=== PATIENT | female | born 1995 | race Caucasian/White ===

== ENCOUNTER → 2019-05-24 13:40 | Observation (INO) ==
[2019-05-24 11:51] LABS: Basophils % 0.2 %; Eosinophils % 0.2 %; Hematocrit 33.5 % (35.3-44.9); Hemoglobin 11.4 g/dL (11.5-15.4); Immature Granulocytes % 0.3 % (0-4); Lymphocytes # 1.8 K/mcL (0.6-4.6); Lymphocytes % 14.6 %; Mean Corpuscular Hemoglobin 29.8 pg (28.0-33.3); Mean Corpuscular Volume 87.7 fL (83.0-100.0); Mean Platelet Volume 10.9 fL (9.4-12.4); Monocytes % 8.2 %; Neutrophils # 9.3 K/mcL (1.6-8.9); Platelet Count 246 K/mcL (140-400); Red Blood Count 3.82 M/mcL (3.82-4.97); Red Cell Distribution Width 12.9 % (11.5-14.5); Segmented Neutrophils % 76.5 %; White Blood Count 12.2 K/mcL (4.3-11.1)
[2019-05-24 11:57] LABS: Amphetamine Screen,Urine Negative ng/mL (Cutoff=1000); Barbiturate Screen,Urine Negative ng/mL (Cutoff=200); Benzodiazepines Screen,Urine Negative ng/mL (Cutoff=200); Cannabinoid Screen,Urine Negative ng/mL (Cutoff = 50); Cocaine Screen,Urine Negative ng/mL (Cutoff= 300); Creatinine,Urine 64 mg/dL; Opiate Screen,Urine Negative ng/mL (Cutoff=300); Phencyclidine Screen,Urine Negative ng/mL (Cutoff=25); Protein/Creatinine Ratio,Urine 0.19 mg/mg (0.00-0.20)
[2019-05-24 12:07] LABS: Alanine Aminotransferase 15 Units/L (7-52); Aspartate Amino Transferase 17 Units/L (13-39); BUN/Creatinine Ratio 9 (6-26); Blood Urea Nitrogen 6 mg/dL (6-20); Lactate Dehydrogenase 122 Units/L (140-271); Uric Acid 6.3 mg/dL (2.3-7.6); eGFR For African Americans > 60 (> 60); eGFR For Non-African Americans > 60 (> 60)
--- NOTE | 2019-05-24 13:34 | Discharge Summary ---
Date of Encounter: 05/24/19 Time of Encounter: 13:33 - Discharge Diagnosis (1) 38 weeks gestation of Priority: Primary Status: Acute Comments: Admit to observation for preeclapsia evaluation (2) NST (non-stress test) reactive Priority: Secondary Status: Acute Comments: FHR 140 bpm, moderate variability, +15x15 accels, no decels. (3) Breech presentation of fetus Priority: Secondary Status: Acute Comments: Patient planning to schedule a primary section with Dr. Pacheco due to breech presentation. Declined an external version. Qualifiers: Fetus number: single or unspecified fetus Qualified Code(s): O32.1XX0 - Maternal care for breech presentation, not applicable or unspecified (4) Elevated blood pressure affecting in third trimester, antepartum Priority: Secondary Status: Acute Comments: BP's mildly elevated on arrival but returned to normotensive prior to discharge. All labs within normal limits. Data Procedures and tests throughout hospitalization: Laboratory Tests 05/24/19 05/24/19 05/24/19 11:30 11:30 11:30 WBC 12.2 H RBC 3.82 Hgb 11.4 L Hct 33.5 L MCV 87.7 MCH 29.8 MCHC 34.0 RDW 12.9 Plt Count 246 MPV 10.9 Immature Gran % 0.3 Seg Neutrophils % 76.5 Lymphocytes % 14.6 Monocytes % 8.2 Eosinophils % 0.2 Basophils % 0.2 Neutrophils # 9.3 H Lymphocytes # 1.8 Monocytes # 1.0 Eosinophils # 0.0 Basophils # 0.0 BUN 6 Creatinine 0.64 Est GFR ( Amer) > 60 Est GFR (Non-Af Amer) > 60 BUN/Creatinine Ratio 9 Uric Acid 6.3 AST 17 ALT 15 Lactate Dehydrogenase 122 L Urine Creatinine 64 Protein/Creatinin Ratio 0.19 Urine Total Protein 12 Urine Opiates Screen Negative Ur Buprenorphine Scrn Negative Ur Barbiturates Screen Negative Ur Phencyclidine Scrn Negative Ur Amphetamines Screen Negative U Benzodiazepines Scrn Negative Urine Cocaine Screen Negative U Marijuana (THC) Screen Negative Ur Drug Screen Interp See Below Labs on day of discharge: Labs from last 24 hours 05/24/19 05/24/19 05/24/19 11:30 11:30 11:30 WBC 12.2 H RBC 3.82 Hgb 11.4 L Hct 33.5 L MCV 87.7 MCH 29.8 MCHC 34.0 RDW 12.9 Plt Count 246 MPV 10.9 Immature Gran % 0.3 Seg Neutrophils % 76.5 Lymphocytes % 14.6 Monocytes % 8.2 Eosinophils % 0.2 Basophils % 0.2 Neutrophils # 9.3 H Lymphocytes # 1.8 Monocytes # 1.0 Eosinophils # 0.0 Basophils # 0.0 BUN 6 Creatinine 0.64 Est GFR ( Amer) > 60 Est GFR (Non-Af Amer) > 60 BUN/Creatinine Ratio 9 Uric Acid 6.3 AST 17 ALT 15 Lactate Dehydrogenase 122 L Urine Creatinine 64 Protein/Creatinin Ratio 0.19 Urine Total Protein 12 Urine Opiates Screen Negative Ur Buprenorphine Scrn Negative Ur Barbiturates Screen Negative Ur Phencyclidine Scrn Negative Ur Amphetamines Screen Negative U Benzodiazepines Scrn Negative Urine Cocaine Screen Negative U Marijuana (THC) Screen Negative Ur Drug Screen Interp See Below Date of admission: 05/24/19 11:07 Discharging clinician: Natalie Monk Anticipated date of discharge: 05/24/19 - Patient Status Disposition: Home, Self-Care Condition: Good Functional capacity at discharge: independent ambulation Overall status at discharge: patient is progressing back to baseline - Discharge Instructions Follow Up With: Vanessa Pacheco MD [Partnered Physician] - - Diet and Activity Activity: resume usual activities as tolerated Diet: regular diet Hospital Course [employer] Hospital course: Patient was sent from office for preeclampsia evaluation due to elevated blood pressure in the office. On arrival, BP was mildly elevated but patient is asymptomatic. She reports occasional "floaters" in her vision but denies headache and epigastric pain. At time of discharge, BP were normal range. Patient was known to be massimo breech presentation and requests a primary . All bloodwork has returned within normal limits with a PC ratio of 0.19. Dr. Pacheco notified of lab results and BP's so can be scheduled. Irregular contractions were noted, SVE 2/thick/high which is unchanged from exam in office today. Patient will be discharged home with precautions and is to expect a call from the office to schedule her . Time Attestation: Total time spent providing and/or coordinating discharge services: Time Spent: Less than 30 minutes Exam - Constitutional General appearance IM: A&O X 3, pleasant, no acute distress, answers questions appropriately - Respiratory Respiratory exam: Present: CTAB. Absent: respiratory distress - Cardiovascular Cardiovascular exam IM: Present: RRR, +S1, +S2. Absent: irregular rhythm - GI/Abdominal GI/Abdominal exam IM: normal bowel sounds, soft Incision: normal, dry, intact - Rectal Rectal exam: deferred - Extremities Exam Extremities exam IM: Present: full ROM, normal capillary refill, pedal edema, warm. Absent: calf tenderness - Neurological Exam Neurological exam: alert, normal gait, oriented X3, reflexes normal - VTE Reasons for not Prescribing Prophylaxis: Treatment not Indicated - Low risk for VTE
== END | disposition home or self-care (01) ==
LOC: 1NENULAB
PROVIDERS: ADMIT Registered Nurse; ATTEND Registered Nurse

== ENCOUNTER 2019-05-26 13:36 | Inpatient (IN) ==
[2019-05-26] MEDS ORDERED: CeFAZolin Premix DUPLEX 2,000 MG/50 ML BAG IVPB ONE (13:53)
[2019-05-26] MEDS ORDERED: Metoclopramide 10 MG/2 ML VIAL IVP ONE ×2 (13:53→16:15)
[2019-05-26] MEDS ORDERED: Oxytocin 20 units/ LR 1000 mL 20 UNIT/1,000 ML BAG IVC ONE (13:53)
[2019-05-26] MEDS ORDERED: Ringers Solution, Lactated 1,000 ML IVC ONE (13:53)
[2019-05-26] MEDS ORDERED: Famotidine 20 MG/2 ML VIAL IVP ONE (13:53)
[2019-05-26] MEDS ORDERED: Ringers Solution, Lactated 1,000 ML IVC SCH (14:00)
[2019-05-26] MEDS ORDERED: Oxytocin 20 units/ LR 1000 mL 20 UNIT/1,000 ML BAG IVC SCH ×2 (14:00→18:40)
[2019-05-26 14:15] LABS: Basophils % 0.2 %; Eosinophils % 0.1 %; Hematocrit 33.4 % (35.3-44.9); Hemoglobin 11.6 g/dL (11.5-15.4); Immature Granulocytes % 0.4 % (0-4); Lymphocytes # 2.1 K/mcL (0.6-4.6); Lymphocytes % 15.9 %; Mean Corpuscular HGB Conc 34.7 g/dL (31.6-35.5); Mean Corpuscular Hemoglobin 31.2 pg (28.0-33.3); Mean Corpuscular Volume 89.8 fL (83.0-100.0); Mean Platelet Volume 11.6 fL (9.4-12.4); Neutrophils # 9.8 K/mcL (1.6-8.9); Platelet Count 247 K/mcL (140-400); Red Blood Count 3.72 M/mcL (3.82-4.97); Red Cell Distribution Width 12.9 % (11.5-14.5); Segmented Neutrophils % 75.4 %
[2019-05-26 14:24] LABS: Amphetamine Screen,Urine Negative ng/mL (Cutoff=1000); Barbiturate Screen,Urine Negative ng/mL (Cutoff=200); Benzodiazepines Screen,Urine Negative ng/mL (Cutoff=200); Cannabinoid Screen,Urine Negative ng/mL (Cutoff = 50); Cocaine Screen,Urine Negative ng/mL (Cutoff= 300); Opiate Screen,Urine Negative ng/mL (Cutoff=300); Phencyclidine Screen,Urine Negative ng/mL (Cutoff=25)
--- NOTE | 2019-05-26 15:14 | OB/GYN History & Physical ---
Date of Encounter: 05/26/19 Time of Encounter: 15:12 Assessment and Plan (1) Breech presentation of fetus Current visit: No Status: Acute Qualifiers: Fetus number: single or unspecified fetus Qualified Code(s): O32.1XX0 - Maternal care for breech presentation, not applicable or unspecified (2) 39 weeks gestation of Current visit: Yes Status: Acute History of Present Illness Chief complaint: Breech presentation HPI: Ms. Dumont is a 24 year old female 1 at 39 weeks gestation who presents for scheduled section for massimo breech presentation. Ultrasound was just performed which confirmed infant to be in massimo breech presentation. Patient does not wish person. She wishes a primary section. She is doing well. With no complaints. She is not laboring currently. She has no drug allergies. She is currently on vitamins. She has no chronic medical conditions. Surgical history is negative. She has no history of STDs or pelvic infections. She has no history of abnormal Pap smears. Socially she denies tobacco, alcohol, illicit drug use. Family history is noncontributory Past Med Surg Social Fam HX - Past Medical History Medical history: no medical history Psychiatric history: no psych history - Past Surgical History Surgical History: other Additional surgical history: reconstructive bladder surgery at age 3 - Social History Smoking Status: Never smoker Alcohol use: none Drug use: none - Family History Maternal Grandmother Living Status: Still Living Hx Family Cancer: Yes (piutary cancer) Hx Family Neurologic Disorders: No Hx Family HEENT Disorders: No Hx Family Autoimmune Disorders: No Obstetrical History - Pregnancies : 1 Medications and Allergies Vitamin Tablet 1 / PO DAILY 05/26/19 [History] Allergy/AdvReac Type Severity Reaction Status Date / Time No Known Allergies Allergy Verified 05/26/19 13:51 Review of System OB All systems PM: reviewed and no additional remarkable complaints except as stated Exam - Constitutional Constitutional: well developed, well nourished, no acute distress, average body habitus - HEENT HEENT: EOMI, PERRL - Neck Neck exam: full ROM, normal inspection - Lungs Respiratory exam: CTAB - Cardiovascular Cardiovascular exam: RRR - Abdomen Abdomen: Present: bowel sounds normal, gravid, non tender - Extremities Extremities exam: full ROM - Vagina Vagina: Present: normal moisture Results Result Diagrams: 05/26/19 13:40 Abnormal lab results WBC 13.0 K/mcL (4.3-11.1) H 05/26/19 13:40 RBC 3.72 M/mcL (3.82-4.97) L 05/26/19 13:40 Hct 33.4 % (35.3-44.9) L 05/26/19 13:40 Neutrophils # 9.8 K/mcL (1.6-8.9) H 05/26/19 13:40 All other labs normal.
--- NOTE | 2019-05-26 15:57 | Anesthesia Procedures ---
Date of Encounter: 05/26/19 Time of Encounter: 15:55 Procedures: Anesthesia - Epidural/Spinal Patient ID/Chart reviewed: Yes Patient examined: Yes OB Eval: Gestational age: 39 weeks 1 day OB Eval: : 1 OB Eval: Hx Para: 0 OB Eval: Contractions: Non-stressed pattern Consent Obtained: Yes Supplemental Oxygen: None/Room Air Site Prep: Aseptic Technique, Sterile prep and drape, 0.5% Chlorhexidine/Alcohol Patient position: upright Local Anesthetic: Lidocaine 1% Amount of Local Anesthetic used: 3 Interspace Used: L3-L4 Blood: No CSF: Yes Paresthesia: No Spinal Needle Gauge: 25 (3.5" pencan needle) Procedure: successful on 1st attempt; patient tolerated procedure well; VSS Vitals + FHT's: see anesthesia record
[2019-05-26] MEDS ORDERED: *HR* Oxytocin 10 UNIT/ML VIAL IM ONE (16:12)
[2019-05-26] MEDS ORDERED: *HR* Morphine Sulfate/PF 10 MG/10 ML AMPUL ONE (16:12)
[2019-05-26] MEDS ORDERED: *HR* Phenylephrine 10 MG/ML VIAL ONE (16:12)
[2019-05-26] MEDS ORDERED: *HR* FentaNYL (PF) 100 MCG/2 ML VIAL ONE (16:12)
[2019-05-26] MEDS ORDERED: *HR* OxyCODONE Immed Rel 5 MG TABLET PO PRN (16:15)
[2019-05-26] MEDS ORDERED: Ondansetron 4 MG/2 ML VIAL IVP ONE (16:15)
[2019-05-26] MEDS ORDERED: *HR* Labetalol 20 MG/4 ML SYRINGE IVP PRN (16:15)
[2019-05-26] MEDS ORDERED: *HR* HYDROmorphone (PF) 1 MG/ML SYRINGE IVP PRN (16:15)
--- NOTE | 2019-05-26 16:17 | OB/GYN Procedure Note ---
Section - Date of procedure: 05/26/19 Preop diagnosis: breech Post-op diagnosis: same Procedure: primary low transverse Surgeon: Frederick Baker Blood Loss: 500 Was there an mechanic's assistant present: Yes Eating Disorder Psychologist: Tameka Banegas Compressor Mechanic Bus: Tank Clemens Anesthesia Type: Spinal section complications: none Disposition: PACU - (s) A Delivery Date: 05/26/19 Infant Delivery Time: 15:48 Presentation: breech, massimo breech Route of delivery: other Gender: Male Viability: Viable Pounds: 8 Ounces: 13 Gram Weight: 4.01 kg at 1 minute: 9 at 5 minutes: 10 Placenta: partial extraction Cord: 3 umbilical vessels - Narrative Narrative: Patient was taken back to the operating room after massimo breech presentation was confirmed on ultrasound. Informed consent was obtained. Patient was given spinal anesthesia she was then prepped and draped in usual sterile fashion. Once adequate analgesia was achieved a Pfannenstiel incision was made and carried sharply through subcutaneous taste and fatty tissue to the fascial layers reached. The fascia was then nicked in the midline and incised bilaterally with Moore scissors. Was then dissected vertically for adequate exposure. Rectus abdominis muscles creatures and separate the midline and the peritoneum sharply entered. It was bluntly extended. The bladder flap was then developed without difficulty. A bladder blade was placed over the bladder flap and a low transverse incision was then made in the lower uterine segment. Fluid was noted be clear. The infant was found to be in massimo breech presentation. The was delivered in massimo breech presentation without any difficulty and in the usual fashion. cried immediately upon delivery. Cord blood was not needed. was passed to NICU team in attendance. Placenta was delivered via uterine massage and lavage. The uterus is then delivered. Patient was found to have heart-shaped uterus with a small septum. We discussed this was the reason was in breech presentation. Patient states she knew this. After uterine lavage performed the incision was then closed the Vicryl suture running locking fashion. A second imbricating layer was performed for final hemostasis. The uterus was then replaced the pelvic cavity. The pelvic cavity was rinsed thoroughly with sterile water 2. C no bleeding the procedure was terminated. Sponge uterus 2. The fascia then closed the Vicryl suture running nonlocking fashion. The suprafascial region was rinsed thoroughly with sterile water 2 all bleeders cauterized the skin was closed shilo. Patient tolerated procedure well. A blood loss 500 mL. Patient delivered a male infant weight is 8 lbs. 13 oz. in massimo breech presentation with Apgars of 9 at 1 minute and 10 at 5 minutes.
--- NOTE | 2019-05-26 16:26 | Anesthesia Evaluation Post Op ---
Date of Encounter: 05/26/19 Time of Encounter: 16:25 - Vital Signs Vital Signs: 129/69, HR 115, SpO2 99%; RR16 - Lungs Lungs: Clear Ascult./Percussion - Airway Airway: Non-obstructed - Cardiovascular Regular Rate - Mental Status Mental Status: Alert & Oriented, Answers Appropriately - Pain Pain Scale: 0 Pain Scale used: Numeric (1 - 10) - Nausea Vomiting Nausea Vomiting: Not Present - Hydration Hydration: NPO, Schuster catheter - Discharge PostOp Status: Transfer Patient to floor
[2019-05-26] MEDS ORDERED: Metoclopramide 10 MG/2 ML VIAL IVP PRN (18:40)
[2019-05-26] MEDS ORDERED: Simethicone 80 MG TAB.CHEW PO PRN (18:40)
[2019-05-26] MEDS ORDERED: Sennosides 8.6 MG TABLET PO PRN (18:40)
[2019-05-26] MEDS ORDERED: Ondansetron 4 MG/2 ML VIAL IVP PRN (18:40)
[2019-05-26] MEDS: Ibuprofen 600 MG TABLET PO PRN (23:50)
[2019-05-26] MEDS: CeFAZolin Premix DUPLEX 2,000 MG/50 ML BAG IVPB SCH (23:50)
[2019-05-27] MEDS: *HR* OxyCODONE/APAP 5/325 TABLET PO PRN ×4 (01:58→22:36)
[2019-05-27] MEDS: Ibuprofen 600 MG TABLET PO PRN ×4 (05:39→23:44)
[2019-05-27 07:02] LABS: Basophils % 0.1 %; Eosinophils % 0.1 %; Hematocrit 29.1 % (35.3-44.9); Immature Granulocytes % 0.4 % (0-4); Lymphocytes # 1.7 K/mcL (0.6-4.6); Lymphocytes % 11.5 %; Mean Corpuscular HGB Conc 33.7 g/dL (31.6-35.5); Mean Corpuscular Hemoglobin 30.1 pg (28.0-33.3); Mean Corpuscular Volume 89.3 fL (83.0-100.0); Mean Platelet Volume 11.2 fL (9.4-12.4); Monocytes # 1.4 K/mcL (0.0-1.3); Monocytes % 9.9 %; Neutrophils # 11.3 K/mcL (1.6-8.9); Platelet Count 204 K/mcL (140-400); Red Blood Count 3.26 M/mcL (3.82-4.97); Red Cell Distribution Width 12.8 % (11.5-14.5); White Blood Count 14.6 K/mcL (4.3-11.1)
[2019-05-27 07:22] LABS: Hemoglobin 9.8 g/dL (11.5-15.4)
[2019-05-27] MEDS: Prenatal Vit/FA 1 EACH TABLET PO SCH (08:18)
[2019-05-27] MEDS: CeFAZolin Premix DUPLEX 2,000 MG/50 ML BAG IVPB SCH ×2 (08:20→16:44)
--- NOTE | 2019-05-27 10:14 | OB/GYN Progress Note ---
Date of Encounter: 05/27/19 Time of Encounter: 10:12 - Assessment and Plan (1) Status post delivery Current Visit: Yes Status: Acute Patient meeting day one milestones. Pain well-controlled with prescribed medications. Voiding without difficulty, tolerating regular diet, bleeding light. No bowel movement yet. Anticipate discharge either today or Friday (2) Breast feeding status of mother Current Visit: Yes Status: Acute Patient support as needed. Patient states she has a breast pump at home (3) Acute blood loss anemia Current Visit: Yes Status: Acute Continue daily iron supplementation. Patient is asymptomatic and vitals are within normal limits Subjective - Subjective Principal diagnosis: Status post Interval history: Date of procedure: 05/26/19 Preop diagnosis: breech Post-op diagnosis: same Procedure: primary low transverse Surgeon: Frederick Baker Blood Loss: 500 Was there an embroidery assistant present: Yes Dowel Inspector: Tameka Banegas Medtronics Technician: Tank Clemens Anesthesia Type: Spinal section complications: none Disposition: PACU - (s) A Infant Delivery Date: 05/26/19 Infant Delivery Time: 15:48 Presentation: breech, massimo breech Route of delivery: other Gender: Male Viability: Viable Pounds: 8 Ounces: 13 Gram Weight: 4.01 kg at 1 minute: 9 at 5 minutes: 10 Placenta: partial extraction Cord: 3 umbilical vessels - Narrative Narrative: Patient was taken back to the operating room after massimo breech presentation was confirmed on ultrasound. Informed consent was obtained. Patient was given spinal anesthesia she was then prepped and draped in usual sterile fashion. Once adequate analgesia was achieved a Pfannenstiel incision was made and carried sharply through subcutaneous taste and fatty tissue to the fascial layers reached. The fascia was then nicked in the midline and incised bilaterally with Moore scissors. Was then dissected vertically for adequate exposure. Rectus abdominis muscles creatures and separate the midline and the peritoneum sharply entered. It was bluntly extended. The bladder flap was then developed without difficulty. A bladder blade was placed over the bladder flap and a low transverse incision was then made in the lower uterine segment. Fluid was noted be clear. The was found to be in massimo breech presentation. The was delivered in massimo breech presentation without any difficulty and in the usual fashion. Infant cried immediately upon delivery. Cord blood was not needed. Infant was passed to NICU team in attendance. Placenta was delivered via uterine massage and lavage. The uterus is then delivered. Patient was found to have heart-shaped uterus with a small septum. We discussed this was the reason was in breech presentation. Patient states she knew this. After uterine lavage performed the incision was then closed the Vicryl suture running locking fashion. A second imbricating layer was performed for final hemostasis. The uterus was then replaced the pelvic cavity. The pelvic cavity was rinsed thoroughly with sterile water 2. C no bleeding the procedure was terminated. Sponge uterus 2. The fascia then closed the Vicryl suture running nonlocking fashion. The suprafascial region was rinsed thoroughly with sterile water 2 all bleeders cauterized the skin was closed shilo. Patient tolerated procedure well. A blood loss 500 mL. Patient delivered a male weight is 8 lbs. 13 oz. in massimo breech presentation with Apgars of 9 at 1 minute and 10 at 5 minutes. Patient reports: appetite normal, voiding normally, pain well controlled, ambulating normally [place]: doing well, nursing well Objective - Vital Signs Latest vital signs: Vital Signs Temp Pulse Resp BP Pulse Ox 05/27/19 08:23 98.1 F 89 16 127/86 98 05/27/19 05:30 98.3 F 92 14 127/84 97 05/26/19 23:50 98.9 F 110 14 136/93 97 05/26/19 22:20 98.0 F 106 14 131/86 98 05/26/19 21:15 98.2 F 111 14 128/82 98 05/26/19 20:15 98.5 F 113 14 133/85 98 05/26/19 19:45 97.8 F 112 14 140/85 97 05/26/19 18:44 98.4 F 108 16 129/82 97 Intake and Output 05/26/19 05/27/19 05/27/19 23:59 07:59 15:59 Intake Total 850 / 850 Output Total 850 / 850 550 / 550 Balance -850 / -850 300 / 300 Intake: IV Fluids 50 / 50 Ancef Premix DUPLEX 2,000 mg In 50 / 50 50 ml @ 100 mls/hr IVPB Q8HR [facility] Rx#:[id number] Oral 800 / 800 Output: Emesis 300 / 300 Catheter 550 / 550 550 / 550 Other: Weight 97.1 kg 93.803 kg Patient Weight 05/27/19 23:59 Weight 93.803 kg - Exam Lungs: bilateral: normal Chest: Normal S1, Normal S2 Extremities: Present: normal Abdomen: Present: normal appearance, soft. Absent: distention, tenderness Incision: Present: normal, dry, intact Uterus: Present: normal, firm Fundal Height: 0 (@u) - Labs Labs: Laboratory Results - last 24 hr 05/26/19 05/26/19 05/27/19 13:40 13:40 05:53 WBC 13.0 H 14.6 H RBC 3.72 L 3.26 L Hgb 11.6 9.8 L D Hct 33.4 L 29.1 L MCV 89.8 89.3 MCH 31.2 30.1 MCHC 34.7 33.7 RDW 12.9 12.8 Plt Count 247 204 MPV 11.6 11.2 Immature Gran % 0.4 0.4 Seg Neutrophils % 75.4 78.0 Lymphocytes % 15.9 11.5 Monocytes % 8.0 9.9 Eosinophils % 0.1 0.1 Basophils % 0.2 0.1 Neutrophils # 9.8 H 11.3 H Lymphocytes # 2.1 1.7 Monocytes # 1.0 1.4 H Eosinophils # 0.0 0.0 Basophils # 0.0 0.0 Urine Opiates Screen Negative Ur Buprenorphine Scrn Negative Ur Barbiturates Screen Negative Ur Phencyclidine Scrn Negative Ur Amphetamines Screen Negative U Benzodiazepines Scrn Negative Urine Cocaine Screen Negative U Marijuana (THC) Screen Negative Ur Drug Screen Interp See Below
[2019-05-28] MEDS: *HR* OxyCODONE/APAP 5/325 TABLET PO PRN ×2 (04:55→09:28)
[2019-05-28 08:26] VITALS: BP 127/95
[2019-05-28] MEDS: Ibuprofen 600 MG TABLET PO PRN (08:35)
[2019-05-28] MEDS: Prenatal Vit/FA 1 EACH TABLET PO SCH (08:35)
--- NOTE | 2019-05-28 10:32 | Discharge Summary ---
Date of Encounter: 05/28/19 Time of Encounter: 10:29 - Discharge Diagnosis (1) Status post delivery Priority: Primary Status: Acute Comments: Stable POD#2, meeting all PP milestones, pain well managed, desires discharge (2) Breast feeding status of mother Priority: Secondary Status: Acute (3) Acute blood loss anemia Priority: Secondary Status: Acute - Discharge Medications Prescriptions: New Ferrous Sulfate 325 mg PO 0800 #30 tablet Ibuprofen [Motrin] 600 mg PO Q6HR PRN #60 tablet PRN Reason: Cramping OxyCODONE/APAP 5/325 [Percocet 5/325 MG] 1 each PO Q4HR PRN 5 Days #20 tablet PRN Reason: Moderate pain 4-6 Docusate [Colace] 100 mg PO BID #30 capsule Simethicone [Gas-X] 80 mg PO TID PRN tab.chew PRN Reason: Dyspepsia Continued Vitamin Tablet 1 / PO DAILY Home Medications: Vitamin Tablet 1 / PO DAILY 05/26/19 [History] Docusate [Colace] 100 mg PO BID #30 capsule 05/28/19 [Rx] Ferrous Sulfate 325 mg PO 0800 #30 tablet 05/28/19 [Rx] Ibuprofen [Motrin] 600 mg PO Q6HR PRN #60 tablet 05/28/19 [Rx] OxyCODONE/APAP 5/325 [Percocet 5/325 MG] 1 each PO Q4HR PRN 5 Days #20 tablet 05/28/19 [Rx] Simethicone [Gas-X] 80 mg PO TID PRN tab.chew 05/28/19 [Rx] Allergies/Adverse Reactions: Allergy/AdvReac Type Severity Reaction Status Date / Time No Known Allergies Allergy Verified 05/26/19 13:51 Data Procedures and tests throughout hospitalization: Laboratory Tests 05/26/19 05/26/19 05/27/19 13:40 13:40 05:53 WBC 13.0 H 14.6 H RBC 3.72 L 3.26 L Hgb 11.6 9.8 L D Hct 33.4 L 29.1 L MCV 89.8 89.3 MCH 31.2 30.1 MCHC 34.7 33.7 RDW 12.9 12.8 Plt Count 247 204 MPV 11.6 11.2 Immature Gran % 0.4 0.4 Seg Neutrophils % 75.4 78.0 Lymphocytes % 15.9 11.5 Monocytes % 8.0 9.9 Eosinophils % 0.1 0.1 Basophils % 0.2 0.1 Neutrophils # 9.8 H 11.3 H Lymphocytes # 2.1 1.7 Monocytes # 1.0 1.4 H Eosinophils # 0.0 0.0 Basophils # 0.0 0.0 Urine Opiates Screen Negative Ur Buprenorphine Scrn Negative Ur Barbiturates Screen Negative Ur Phencyclidine Scrn Negative Ur Amphetamines Screen Negative U Benzodiazepines Scrn Negative Urine Cocaine Screen Negative U Marijuana (THC) Screen Negative Ur Drug Screen Interp See Below Date of admission: 05/26/19 13:36 Primary care physician: PCP NONE Discharging clinician: Leana Bradley Anticipated date of discharge: 05/28/19 - Patient Status Disposition: Home, Self-Care Condition: Good Functional capacity at discharge: independent ambulation Overall status at discharge: patient is progressing back to baseline - Discharge Instructions Follow Up With: NONE,PCP [Primary Care Provider] - Frederick Vyas MD [Partnered Physician] - - Diet and Activity Activity: resume usual activities as tolerated Diet: regular diet Hospital Course Reason for admission: section Delivery: section Episiotomy: none Other procedures: none complications: none Discharge diagnosis: IUP at term delivered [place] baby: male Hospital course: Section - Date of procedure: 05/26/19 Preop diagnosis: breech Post-op diagnosis: same Procedure: primary low transverse Surgeon: Frederick Vyas Quantitated Blood Loss: 500 Was there an budget assistant present: Yes Booster Pump Oiler: Tameka Banegas Mold Closer: Tank Clemens Anesthesia Type: Spinal section complications: none Disposition: PACU - Infant (s) Infant A Infant Delivery Date: 05/26/19 Infant Delivery Time: 15:48 Presentation: breech, massmio breech Route of delivery: other Gender: Male Viability: Viable Pounds: 8 Ounces: 13 Gram Weight: 4.01 kg at 1 minute: 9 at 5 minutes: 10 Placenta: partial extraction Cord: 3 umbilical vessels Stable in PP and appropriate for discharge. OARRS reviewed Time Attestation: Total time spent providing and/or coordinating discharge services: Time Spent: Less than 30 minutes - VTE Documentation of Mechanical Device: Intermittent pneumatic compression device Exam - Constitutional Vitals: Temp Pulse Resp BP Pulse Ox 97.9 F 97 16 127/95 98 05/28/19 08:25 05/28/19 08:25 05/28/19 08:25 05/28/19 08:25 05/28/19 08:25 - Respiratory Respiratory exam: Present: CTAB - Cardiovascular Cardiovascular exam IM: Present: RRR - GI/Abdominal GI/Abdominal exam IM: soft - Uterine Tone: Firm Uterus Position: At Umbilicus - Extremities Exam Extremities exam IM: Present: normal capillary refill, normal inspection - Neurological Exam Neurological exam: normal gait, oriented X3 - Psychiatric Additional comments: reports good mood
== END 2019-05-28 12:31 | disposition home or self-care (01) | DRG 787 ==
LOC: 1NENULAB 13:36 → EDSTATUS 15:00 → 1NENUOBS 18:40
PROVIDERS: ADMIT Obstetrics & Gynecology; ATTEND Obstetrics & Gynecology

== ENCOUNTER 2022-03-16 09:26 | Inpatient (IN) ==
[2022-03-16] MEDS ORDERED: OXYTOCIN/RINGERS LACTATE 10 UNIT/166.6 ML BAG IVC ONE (09:51)
[2022-03-16] MEDS ORDERED: Ringers Solution, Lactated 1,000 ML IVC ONE (09:51)
[2022-03-16] MEDS ORDERED: Famotidine 20 MG/2 ML VIAL IVP ONE (09:51)
[2022-03-16] MEDS ORDERED: Metoclopramide 10 MG/2 ML VIAL IVP ONE (09:51)
[2022-03-16] MEDS ORDERED: CeFAZolin 2,000 MG/120 ML BAG IVPB ONE (09:51)
[2022-03-16] MEDS ORDERED: Ringers Solution, Lactated 1,000 ML IVC SCH (10:00)
[2022-03-16] MEDS ORDERED: Oxytocin 30 UNIT/503 ML BAG IVC SCH ×2 (10:00→15:46)
[2022-03-16] MEDS ORDERED: *HR* Morphine Sulfate/PF 10 MG/10 ML AMPUL ONE (11:09)
[2022-03-16] MEDS ORDERED: *HR* Midazolam HCl 2 MG/2 ML VIAL ONE (11:09)
[2022-03-16] MEDS ORDERED: EPHEDrine 50 MG/ML VIAL ONE (11:10)
[2022-03-16] MEDS ORDERED: *HR* FentaNYL (PF) 100 MCG/2 ML VIAL ONE (11:10)
[2022-03-16] MEDS ORDERED: *HR* Oxytocin 10 UNIT/ML VIAL ONE (11:11)
[2022-03-16] MEDS ORDERED: Ondansetron 4 MG/2 ML VIAL ONE (11:11)
[2022-03-16 11:30] LABS: Basophils % 0.3 %; Eosinophils % 0.1 %; Hemoglobin 12.1 g/dL (11.5-15.4); Immature Granulocytes % 0.3 % (0-4); Lymphocytes # 1.9 K/mcL (0.6-4.6); Lymphocytes % 19.6 %; Mean Corpuscular HGB Conc 34.6 g/dL (31.6-35.5); Mean Corpuscular Hemoglobin 31.5 pg (28.0-33.3); Mean Corpuscular Volume 91.1 fL (83.0-100.0); Mean Platelet Volume 10.9 fL (9.4-12.4); Monocytes # 0.7 K/mcL (0.0-1.3); Monocytes % 6.9 %; Neutrophils # 6.9 K/mcL (1.6-8.9); Platelet Count 183 K/mcL (140-400); Red Blood Count 3.84 M/mcL (3.82-4.97); Red Cell Distribution Width 12.7 % (11.5-14.5); Segmented Neutrophils % 72.8 %; White Blood Count 9.4 K/mcL (4.3-11.1)
[2022-03-16] MEDS ORDERED: Promethazine 6.25 MG in Water for inj. (sterile) 20 ML IVPB PRN (11:34)
[2022-03-16] MEDS ORDERED: Acetaminophen IV 1,000 MG/100 ML BAG IVPB PRN (11:34)
[2022-03-16] MEDS ORDERED: *HR* HYDROmorphone PF 0.5 MG/0.5 ML SYRINGE IVP PRN (11:34)
[2022-03-16] MEDS ORDERED: *HR* Meperidine 25 MG/ML SYRINGE IVP PRN (11:34)
[2022-03-16 11:55] LABS: Amphetamine Screen,Urine Negative ng/mL (Cutoff=1000); Barbiturate Screen,Urine Negative ng/mL (Cutoff=200); Benzodiazepines Screen,Urine Negative ng/mL (Cutoff=200); Cannabinoid Screen,Urine Negative ng/mL (Cutoff = 50); Cocaine Screen,Urine Negative ng/mL (Cutoff= 300); Opiate Screen,Urine Negative ng/mL (Cutoff=300); Phencyclidine Screen,Urine Negative ng/mL (Cutoff=25)
[2022-03-16 12:06] LABS: Influenza A PCR Negative (Negative); Influenza B PCR Negative (Negative); Resp. Syncytial Virus PCR Negative (Negative)
[2022-03-16 12:07] LABS: SARS-CoV-2 by PCR (In House) Negative (Negative)
[2022-03-16] MEDS ORDERED: Acetaminophen IV 1,000 MG/100 ML BAG IVPB ONE (12:56)
[2022-03-16] MEDS ORDERED: Ketorolac 30 MG/ML VIAL ONE (12:56)
[2022-03-16] MEDS ORDERED: Metoclopramide 10 MG/2 ML VIAL IVP PRN (15:46)
[2022-03-16] MEDS ORDERED: Simethicone 80 MG TAB.CHEW PO PRN (15:46)
[2022-03-16] MEDS ORDERED: Ondansetron 4 MG/2 ML VIAL IVP PRN (15:46)
[2022-03-16] MEDS ORDERED: CeFAZolin 2,000 MG/120 ML BAG IVPB SCH (16:00)
[2022-03-16] MEDS: *HR* OxyCODONE Immed Rel 5 MG TABLET PO PRN (17:58)
[2022-03-16] MEDS: Ibuprofen 600 MG TABLET PO SCH ×2 (19:11→19:57)
[2022-03-16] MEDS: Acetaminophen 325 MG TABLET PO SCH (19:56)
[2022-03-16] MEDS: metroNIDAZOLE 500 MG TABLET PO SCH (19:57)
[2022-03-16] MEDS: cephALEXin 500 MG CAPSULE PO SCH (20:04)
[2022-03-16] MEDS ORDERED: DOCUSATE 100 MG PO SCH (21:00)
[2022-03-17] MEDS: Ibuprofen 600 MG TABLET PO SCH ×2 (02:55→09:55)
[2022-03-17] MEDS: Acetaminophen 325 MG TABLET PO SCH ×2 (02:55→09:55)
[2022-03-17 03:41] LABS: Basophils % 0.2 %; Eosinophils % 0.1 %; Hematocrit 28.2 % (35.3-44.9); Immature Granulocytes % 0.4 % (0-4); Lymphocytes % 13.1 %; Mean Corpuscular HGB Conc 35.5 g/dL (31.6-35.5); Mean Corpuscular Hemoglobin 31.5 pg (28.0-33.3); Mean Platelet Volume 10.6 fL (9.4-12.4); Monocytes # 1.4 K/mcL (0.0-1.3); Monocytes % 9.3 %; Neutrophils # 11.5 K/mcL (1.6-8.9); Platelet Count 184 K/mcL (140-400); Red Blood Count 3.17 M/mcL (3.82-4.97); Red Cell Distribution Width 12.5 % (11.5-14.5); Segmented Neutrophils % 76.9 %
[2022-03-17 03:47] LABS: White Blood Count 14.9 K/mcL (4.3-11.1)
[2022-03-17] MEDS: *HR* OxyCODONE Immed Rel 5 MG TABLET PO PRN ×3 (05:48→14:30)
[2022-03-17] MEDS: cephALEXin 500 MG CAPSULE PO SCH (08:12)
[2022-03-17] MEDS: metroNIDAZOLE 500 MG TABLET PO SCH (08:12)
[2022-03-17] MEDS ORDERED: Prenatal Vit/FA 1 EACH TABLET PO SCH (09:00)
[2022-03-17] MEDS ORDERED: PRENATAL VITAMIN PO SCH (09:00)
[2022-03-17 12:23] VITALS: BP 112/77; PULSE 81; TEMP 97.6; O2SAT 99
== END 2022-03-17 14:48 | disposition home or self-care (01) | DRG 788 ==
LOC: 1NENULAB 09:26 → 1NENUOBS 15:43
PROVIDERS: ADMIT Obstetrics & Gynecology; ATTEND Obstetrics & Gynecology